=== PATIENT | female | born 1965 | race Two or more races ===

== ENCOUNTER → 2018-04-05 | Outpatient (CLI) | payer OTHER | LOC: EDBD 07:43 → US 07:43 | PROVIDERS: ATTEND Internal Medicine Cardiovascular Disease | DX: I34.1 Nonrheumatic mitral (valve) prolapse (principal); I34.0 Nonrheumatic mitral (valve) insufficiency; I25.119 Atherosclerotic heart disease of native coronary artery with unspecified angina pectoris; I48.91 Unspecified atrial fibrillation; R00.2 Palpitations; R07.9 Chest pain, unspecified; R06.02 Shortness of breath; I50.9 Heart failure, unspecified | CPT/HCPCS: 93306 ==